=== PATIENT | male | born 1940 ===

== ENCOUNTER → 2017-08-02 | Outpatient (REF) | LOC: ZZSLMC 12:00 | PROVIDERS: ATTEND Surgery | DX: Z02.9 Encounter for administrative examinations, unspecified (principal) | CPT/HCPCS: 88305; 88344 ==

== ENCOUNTER → 2018-02-13 | Outpatient (REF) | LOC: ZZSLMC 12:00 | PROVIDERS: ATTEND Physician Assistant | DX: L82.1 Other seborrheic keratosis (principal) | CPT/HCPCS: 88305 ==